=== PATIENT | female | born 1980 | race Caucasian/White ===

== ENCOUNTER → 2017-07-20 | Day surgery (SDC) | payer BC ==
[~2017-07-20] VITALS: Ht 160 cm; Wt 53.1 kg
[~2017-07-20] MED LIST: *MEPERIDINE 25 MG INJ VIAL PERIprocedural Use ONLY ONE; *morphine SULFATE 8 MG/ML PERIprocedure ONLY ONE; CHLORHEXIDINE GLUCONATE 2 % 1 PACK (2 CLOTHS) TOPICAL PRN; DIPH-201 PO; DO NOT ADM ANY ANTICOAGULANT DRUGS PRN; IBUP200C PO; KETOROLAC TROMETHAMINE 30 MG/ML (IVP) VIAL IV PUSH ONE; LACTATED RINGER'S 1000 ML IV PRN; METOPROLOL TARTRATE 25 MG TAB PO PRN; ONDANSETRON HCL 4 MG/2 ML VIAL IV PUSH PRN; POVIDONE IODINE 5% (ANTISEPSIS KIT) 4 APPLICATIONS EACH NARE PRN; SODIUM CHLORID 0.9% 500 ML IV PRN; ZANT150T2 PO; oxyCODONE/ACETAMINOPHEN 5 MG/325 MG TAB PO PRN
--- NOTE | 2017-07-20 08:27 | MH ---
cc: NICO ROCKWELL M.D. DATE OF ADMISSION: 07/20/2017 HISTORY OF PRESENT ILLNESS The patient is a 37-year-old white female G6, P0-0-6-0, who came to see me in May complaining of feeling something coming off of her cervix. She also was reporting a little bit of postcoital bleeding. She had not been to the owner operator in over 10 years. On physical exam it was found that she had about a 4 cm mass protruding through her endocervix. Biopsy of the mass really came back as low grade squamous intraepithelial lesion, hyperkeratosis and parakeratosis. I thought more on exam it had the appearance of a fibroid. We also had her undergo an ultrasound which revealed uterus measuring 7.4 x 3.3 x 5.3, an endometrial lining of 6 mm. Right and left ovary abnormal. They describe the cervix as having a 3.5 cm mass with blood flow in it with a complex appearance at the level of the cervix. So I discussed with the patient that we would need surgery to definitively remove this mass and identify it. Will do that with a dilatation and curettage with MyoSure. PAST MEDICAL HISTORY Gastroesophageal reflux disease. PAST SURGICAL HISTORY Negative. MEDICATIONS Currently are none. ALLERGIES To medications are none SOCIAL HISTORY One pack per day of tobacco. Occasional alcohol. No drug use. 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 FAMILY HISTORY Negative. 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 No history of STDs. OBSTETRICAL HISTORY Six miscarriages. PHYSICAL EXAMINATION VITAL SIGNS: On physical exam her blood pressure is 110/68, pulse of 70, weight 121. BREASTS: Without masses, nodes or discharge. CHEST: Clear to auscultation bilaterally. CARDIAC: Regular rate and rhythm without murmur, rub or gallop. ABDOMEN: Soft. It is nontender. It is nondistended. There is no hepatosplenomegaly. There is no hernias noted. No CVA tenderness. PELVIC EXAMINATION: Vulva, vagina normal external female genitalia. Vaginal vault is normal. About a 4 cm solid type mass protruding through the cervix. Uterus palpates normal size. No adnexal masses. ASSESSMENT/PLAN Cervical mass. Plan will be for dilatation and curettage with a MyoSure. MD MICK Britt/EO /1:44 PM /8:21 AM
[2017-07-20 11:25] VITALS: BP 114/65; PULSE 72; RESP 20; TEMP 98.3; O2SAT 100
--- NOTE | 2017-07-21 13:04 | MP ---
cc: NICO ROCKWELL M.D. DATE OF SURGERY: 07/20/2017 PREOPERATIVE DIAGNOSIS Cervical mass. POSTOPERATIVE DIAGNOSIS Cervical mass, suspected cervical polyp, suspected uterine septum. PROCEDURE PERFORMED Polypectomy with MyoSure dilatation and curettage. OPERATING SURGEON Dr. Nico Rockwell. ANESTHESIA General by facemask. FINDINGS Findings in surgery included about a 4 cm cystic polyp type mass of the cervix and what appeared to be a midline uterine partial septum. ESTIMATED BLOOD LOSS Minimal. COMPLICATIONS None. PROCEDURE IN DETAIL After proper consents were obtained, the patient was taken to the operating room where general by face mask anesthesia was applied. She was then placed in the dorsal lithotomy position, sterilely prepped and draped. At this time a weighted speculum was placed in the vaginal vault. I grabbed the cervical mass with a ring forceps and twisted that until it came off of its thin stalk. We then went ahead and sounded the uterus to about 7 cm and dilated with Hegar dilators up to about #18. We then placed the MyoSure scope using normal saline as a distending medium into the uterine cavity. It revealed to be a very small cavity and really kind of one that appeared to have a septum in the middle. So I went ahead and shaved off all of the endometrial lining. There appeared to be a few more polypoid-type tissue pieces there and I shaved down that septum, so it appeared to have a much more normal cavity with both tubal ostia visible. I removed the instruments. Counts were correct. The patient was stable to the recovery room. MD MICK Britt/BT /9:37 AM /12:50 PM
== END | disposition home or self-care (01) ==
LOC: HSDC 05:57
PROVIDERS: ATTEND Obstetrics & Gynecology
DX: N87.1 Moderate cervical dysplasia (principal); N93.0 Postcoital and contact bleeding; K21.9 Gastro-esophageal reflux disease without esophagitis; F17.200 Nicotine dependence, unspecified, uncomplicated
CPT/HCPCS: 00952; 58558; 84703; 88305; J2175; J2270; J7120